=== PATIENT | female | born 1995 | race Caucasian/White ===

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

== ENCOUNTER → 2017-01-02 | Outpatient (CLI) | payer OTHER ==
--- NOTE | 2017-01-02 10:55 | REP ---
Clinical: Anatomical evaluation. Comparison: None . Findings: Examination demonstrates a single live intrauterine in breech presentation. motion is identified by technologist. Placenta is noted posterior-fundally and grade zero without evidence for placenta previa or abruption. Amniotic fluid volume is normal. Cervix measures 3.2 cm in length and appears closed. No evidence for nuchal cord. Gestational age by LMP 18 weeks 3 days with BAMBI 06/02/2017 . Gestational age by current measurements 18 weeks 2 days with BAMBI 06/03/2017 . FHR equals 144 beats per minute. BPD 4.0 cm 18 weeks 2 days HC 15.4 cm 18 weeks 2 days AC 13.3 cm 18 weeks 5 days FL 2.6 cm 18 weeks 0 days HL 2.6 cm 80 weeks 3 days HC/AC ratio 1.16 Estimated weight 238 grams ( 46 percentile). Anatomical assessment demonstrates normal structures including cranium, choroid plexus, cavum, cerebellum/posterior fossa, facial features, lungs, four-chamber heart/ventricular outflow tracts, diaphragm, stomach, cord insertion/three-vessel cord, kidneys/bladder, spine, and extremities. Impression: Fetus in breech presentation demonstrating appropriate interval growth. Anatomical assessment is complete and normal. Signed by Herbert Watkins MD 01/02/2017 10:46 A
== END ==
LOC: M RAD 09:44
PROVIDERS: ATTEND Specialist
DX: Z36 Encounter for antenatal screening of mother (principal)

== ENCOUNTER → 2017-02-15 | Outpatient (REF) | payer OTHER ==
[~2017-02-15] MED LIST: ACET50TA PO; MOTR200T44 PO; PRENTAB9 PO; TUMS500C PO
== END ==
LOC: M LAB REF 13:26
PROVIDERS: ATTEND Advanced Practice Midwife
DX: O26.893 Other specified pregnancy related conditions, third trimester (principal); R10.30 Lower abdominal pain, unspecified

== ENCOUNTER → 2017-02-28 | Outpatient (CLI) | payer OTHER ==
[2017-02-28 13:28] LABS: MEAN CORPUSCULAR HEMOGLOBIN 30.2 pg (27.0-33.0); MEAN CORPUSCULAR HGB CONC 33.1 g/dl (32.0-36.5); MEAN CORPUSCULAR VOLUME 91.4 fl (80.0-96.0); RED CELL DISTRIBUTION WIDTH 12.3 % (11.5-14.5); WHITE BLOOD COUNT 8.1 K/mm3 (4.0-10.0)
== END ==
LOC: M SMT 09:46
PROVIDERS: ATTEND Advanced Practice Midwife
DX: Z34.82 Encounter for supervision of other normal pregnancy, second trimester (principal); Z36 Encounter for antenatal screening of mother

== ENCOUNTER → 2017-03-27 | Outpatient (CLI) | payer OTHER ==
[2017-03-27 14:05] LABS: BASO % 0.3 % (0.0-1.0); EOS # 0.2 K/mm3 (0.0-0.50); LARGE UNSTAINED CELL # 0.4 K/mm3 (0.0-0.4); LARGE UNSTAINED CELL % 3.3 % (0.0-4.0); LYMPH # 1.9 K/mm3 (1.5-6.5); LYMPH % 17.6 % (24.0-44.0); MEAN CORPUSCULAR HEMOGLOBIN 28.8 pg (27.0-33.0); MEAN CORPUSCULAR HGB CONC 32.8 g/dl (32.0-36.5); MEAN CORPUSCULAR VOLUME 87.7 fl (80.0-96.0); MONO # 0.9 K/mm3 (0.0-0.8); MONO % 7.9 % (0.0-5.0); NEUTROPHILS # 7.6 K/mm3 (1.8-7.7); NEUTROPHILS % 68.8 % (36.0-66.0); PLATELET COUNT, AUTOMATED 405 k/mm3 (150-450); RED CELL DISTRIBUTION WIDTH 12.4 % (11.5-14.5)
[2017-03-27 16:32] LABS: ALBUMIN 2.8 GM/DL (3.2-5.2); ALKALINE PHOSPHATASE 120 U/L (45-117); ALT/SGPT 28 U/L (12-78); AMYLASE 58 U/L (25-115); AST/SGOT 17 U/L (15-37); BILIRUBIN,DIRECT < 0.1 MG/DL (0.0-0.2); BILIRUBIN,TOTAL 0.2 MG/DL (0.2-1.0); TOTAL PROTEIN 6.8 GM/DL (6.4-8.2)
== END ==
LOC: M SMT 11:23
PROVIDERS: ATTEND Advanced Practice Midwife
DX: R10.10 Upper abdominal pain, unspecified (principal); R10.30 Lower abdominal pain, unspecified

== ENCOUNTER → 2017-03-29 | Outpatient (CLI) | payer OTHER ==
--- NOTE | 2017-03-29 08:59 | REP ---
Abdominal right upper quadrant ultrasound: The the patient is 30+ weeks gestational age. There is a positive Cervantes's sign to transducer pressure. There is no cholelithiasis, gallbladder wall thickening or pericholecystic fluid. There is no intrahepatic or extrahepatic biliary duct dilatation, the common duct measures 3.2 mm in diameter. The hepatic parenchyma is homogeneous and unremarkable. The pancreas is obscured by bowel gas. There is mild right hydronephrosis. The right kidney is normal size measuring 10.7 cm craniocaudad length. Impression: Mild right hydronephrosis. Positive Cervantes's sign to transducer pressure. No cholelithiasis or biliary duct dilatation. Signed by Nilo Benz MD 03/29/2017 08:51 A
== END ==
LOC: M RAD 07:20
PROVIDERS: ATTEND Advanced Practice Midwife
DX: R10.10 Upper abdominal pain, unspecified (principal); N13.30 Unspecified hydronephrosis

== ENCOUNTER 2017-04-04 16:12 | Outpatient (CLI) | payer OTHER ==
[~2017-04-04] VITALS: Ht 157.5 cm; Wt 68.0 kg
[2017-04-04] MEDS ORDERED: TUMS500C PO (16:23)
[2017-04-04] MEDS ORDERED: PRENTAB9 PO (16:23)
[2017-04-04 16:24] VITALS: BP 121/76
[2017-04-04] MEDS ORDERED: NS 500 ML IV ONE (16:45)
[2017-04-04] MEDS ORDERED: PROMETHAZINE INJ 25 MG/ML VIAL (J2550) IV PRN (16:45)
[2017-04-04] MEDS ORDERED: NS 1,000 ML IV ONE (16:45)
[2017-04-04] MEDS ORDERED: MORPHINE 4 MG/ML 1ML SYRINGE IV PRN (16:45)
[2017-04-04] MEDS ORDERED: diphenhydrAMINE INJ 50MG/ML VIAL (J1200) IV PRN (16:45)
[2017-04-04] MEDS ORDERED: cefTRIAXone SOD 2 GM in D5W MINI-BAG PLUS 50 ML IV SCH (17:00)
[2017-04-04] MEDS: ACETAMINOPHEN 500 MG TAB PO PRN (17:29)
--- NOTE | 2017-04-04 17:43 | HPE ---
DATE OF ADMISSION: 04/04/2017 CHIEF COMPLAINT: Fever and back pain. HISTORY OF PRESENT ILLNESS: Patient is a 21-year-old 1, para 0-0-0-0, at 31 weeks 4 days gestation, with an estimated due date of 06/02/2017, by last menstrual period of 08/26/2016, confirmed by first trimester ultrasound. She presents complaining of low back pain that starts around the lumbosacral junction and radiates down to her kneecaps bilaterally as well as up to her stomach. She states that the pain started in January. She describes it as being constant and states that her pain has been getting progressively worse. She states that this morning at 2 a.m. the pain in her back became worse than it ever has been before. She rates it as a constant 7-8 out of 10 and describes it as a dull ache with spikes. Nothing seems to make it better, nothing seems to make it worse. She has had back pain in the past, but it has never been this bad. The patient denies contractions, leakage of fluid, bleeding, and discharge. She is feeling the baby move. The patient admits to urinary urgency, seeing frothy urine, having diarrhea times 2 days, nausea, and vomiting. She denies burning with urination, hematuria, shortness of breath, chest pain, or changes in her vision. labs from the office are all within normal limits. PAST MEDICAL HISTORY: 1. Multiple urinary tract infection (UTIs). 2. Depression. PAST SURGICAL HISTORY: [place] teeth removal at the age of 16. FAMILY HISTORY: Significant for mother with Crohn's disease. ALLERGIES: PENICILLIN - reaction hives and shortness of breath. SOCIAL HISTORY: Patient is , denies tobacco, drugs, or alcohol use. EXAMINATION: VITAL SIGNS: Temperature is 101.9, pulse is 127, respiratory rate is 28, blood pressure is 121/76. ABDOMEN: Gravid. BACK: Back pain is felt along the lumbosacral junction, nonreproducible to palpation, TART changes are noted as the muscles feel tight and ropey. There is also a slight loss of lumbar lordosis noted. FHR: Average is 165 bpm, appropriate for gestational age TOCO: No consistent contractions. ASSESSMENT AND PLAN: 21-year-old 1, para 0, at 31 weeks 4 days gestation complaining of fever and back pain. Possible diagnosis is pyelonephritis, which is supported by back pain and fever, as well as personal history of recurrent UTIs. Our plan is to observe outpatient labor and delivery. Labs will include a complete blood count (CBC), complete metabolic panel (CMP), urinalysis. Renal ultrasound has been ordered. Will continue to monitor. My preceptor for this patient encounter was Arina Stiles CNM. The preceptor was physically present in the building during the encounter and was fully available. As needed, all aspects of the patient interview, examination, medical decision making process, and medical care plan development were reviewed and approved by the preceptor. The preceptor is aware and concurs with the plan as stated in the body of this note and will attest to such by his/her cosignature. OLEG
--- NOTE | 2017-04-04 18:29 | REP ---
Renal ultrasound: The images and stored on the PACS archive are suboptimal. Therefore, I have discussed in the case with the business services tech that actually performed of the ultrasound. The kidneys are normal size. Right kidney measures 10.9 x 5.2 x 4.8 cm. Left kidney measures 10.6 x 5.8 x 4.3 cm. Renal cortical echogenicity is normal bilaterally. There is no hydronephrosis, calculus, mass or cyst on the right or the left. There is mild fullness of the right renal pelvis without hydronephrosis. The Doppler resistive index of intraparenchymal arteries of the right kidney is 0.49 and the left kidney 0.53. Impression: Essentially negative renal ultrasound. No hydronephrosis. Bladder ultrasound: The bladder is not distended and cannot be further evaluated at this time. Signed by Nilo Benz MD 04/04/2017 06:21 P
[2017-04-04 18:39] LABS: BASO % 0.3 % (0.0-1.0); EOS % 0.4 % (0.0-3.0); LARGE UNSTAINED CELL # 0.1 K/mm3 (0.0-0.4); LYMPH # 0.8 K/mm3 (1.5-6.5); LYMPH % 6.4 % (24.0-44.0); MEAN CORPUSCULAR HEMOGLOBIN 28.4 pg (27.0-33.0); MEAN CORPUSCULAR HGB CONC 33.5 g/dl (32.0-36.5); MEAN CORPUSCULAR VOLUME 84.8 fl (80.0-96.0); MONO # 0.8 K/mm3 (0.0-0.8); NEUTROPHILS % 84.8 % (36.0-66.0); PLATELET COUNT, AUTOMATED 267 k/mm3 (150-450); RED CELL DISTRIBUTION WIDTH 13.3 % (11.5-14.5); WHITE BLOOD COUNT 10.6 K/mm3 (4.0-10.0)
[2017-04-04 19:03] LABS: ALBUMIN 2.7 GM/DL (3.2-5.2); ALBUMIN/GLOBULIN RATIO 0.68 (1.00-1.93); ALKALINE PHOSPHATASE 126 U/L (45-117); ALT/SGPT 15 U/L (12-78); ANION GAP 13 MEQ/L (8-16); AST/SGOT 13 U/L (15-37); BILIRUBIN,TOTAL 0.2 MG/DL (0.2-1.0); BLOOD UREA NITROGEN 3 MG/DL (7-18); CARBON DIOXIDE LEVEL 20 MEQ/L (21-32); CHLORIDE LEVEL 105 MEQ/L (98-107); GLUCOSE, FASTING 78 MG/DL (70-105); POTASSIUM SERUM 3.4 MEQ/L (3.5-5.1); SODIUM LEVEL 138 MEQ/L (136-145); TOTAL PROTEIN 6.7 GM/DL (6.4-8.2)
[2017-04-04 19:37] LABS: INR 1.01
[2017-04-04 20:36] VITALS: BP 120/72
--- NOTE | 2017-04-04 21:50 | REPUSA ---
CLINICAL HISTORY: Abdominal pain. TECHNIQUE: Realtime sonographic images were obtained in multiple projections. COMMENTS: There is a single intrauterine gestation, vertex presentation. The biparietal diameter measures 8.4 cm. This corresponds to a gestational age of 33 weeks 4 days. The abdominal circumference and femur length measure 27.9 cm and 6 cm, respectively, and are relative ly proportionate to the BPD. The HC-AC ratio is normal. The composite age is 32 weeks 0 days. Estimated weight based on BPD and AC is 1894 grams (5 pounces and 2 ounces). heart motion was observed. The heart rate is 137 beats per minute. The placenta is posterior fundal grade-1 and free of the cervical os. The amniotic fluid volume is normal measuring 13.6 cm. The cervical length is 3.9 cm. Biophysical profile score is 8 out of 8. IMPRESSION: 1. Single, live, intrauterine gestation with a composite gestational age of 32 weeks 0 days. 2. Estimated date of delivery is 05/30/2017. 3. BPP is 03/26.
[2017-04-04 22:57] VITALS: BP 103/58
[2017-04-05] MEDS: ACETAMINOPHEN 500 MG TAB PO PRN (04:56)
[2017-04-05 07:10] VITALS: BP 91/52
== END 2017-04-05 12:50 | disposition home or self-care (01) ==
LOC: M LDO 16:12
PROVIDERS: ATTEND Advanced Practice Midwife
DX: O99.89 Other specified diseases and conditions complicating pregnancy, childbirth and the puerperium (principal); M54.5 Low back pain; R50.9 Fever, unspecified; Z87.440 Personal history of urinary (tract) infections; Z3A.31 31 weeks gestation of pregnancy
CPT/HCPCS: 36415; 59025; 76775; 76816; 76819; 76820; 80053; 81001; 82731; 85025; 85384; 85460; 85610; 85730; 87086; 87491; 87591; 96374; J0696

== ENCOUNTER → 2017-04-04 | Outpatient (REF) | payer OTHER | LOC: M LAB REF 17:29 | PROVIDERS: ATTEND Advanced Practice Midwife | DX: Z34.82 Encounter for supervision of other normal pregnancy, second trimester (principal); Z36 Encounter for antenatal screening of mother ==

== ENCOUNTER → 2017-04-04 | Outpatient (REF) | payer OTHER | LOC: M LAB REF 16:49 | PROVIDERS: ATTEND Advanced Practice Midwife | DX: R10.2 Pelvic and perineal pain (principal) ==

== ENCOUNTER 2017-04-26 22:37 | Inpatient (IN) | payer OTHER ==
[~2017-04-26] VITALS: Ht 157.5 cm; Wt 72.0 kg
[~2017-04-26 22:37] MED LIST changes: -ACET50TA PO; -MOTR200T44 PO
[2017-04-26] MEDS ORDERED: LR 1,000 ML IV SCH (23:10)
[2017-04-26] MEDS ORDERED: LACTATED RINGER'S 1000 ML IV STA (23:10)
[2017-04-26] MEDS ORDERED: BETAMETHASONE SOLUSPAN 6MG/ML INJ 5ML (J0702) IM SCH (23:15)
[2017-04-26] MEDS ORDERED: ACETAMINOPHEN TAB 650MG DOSE (2X325MG) PO PRN (23:15)
[2017-04-26 23:34] LABS: MEAN CORPUSCULAR HEMOGLOBIN 27.3 pg (27.0-33.0); MEAN CORPUSCULAR HGB CONC 32.3 g/dl (32.0-36.5); MEAN CORPUSCULAR VOLUME 84.6 fl (80.0-96.0); RED CELL DISTRIBUTION WIDTH 13.9 % (11.5-14.5); WHITE BLOOD COUNT 16.1 K/mm3 (4.0-10.0)
[2017-04-26] MEDS ORDERED: BUTORPHANOL 2 MG/ML INJ (J0595) IV ONE (23:45)
[2017-04-26] MEDS ORDERED: PROMETHAZINE INJ 25 MG/ML VIAL (J2550) IV ONE (23:45)
[2017-04-26 23:47] VITALS: BP 135/79
[2017-04-27] VITALS (13 sets, daily range): BP systolic 106–188; BP diastolic 56–113
[2017-04-27] MEDS ORDERED: OXYTOCIN 30 UNITS IN 0.9% NaCl 500ML IV BAG (J2590) As Ordered ONE (01:28)
[2017-04-27 01:58] LABS: CORD GAS ABE A -5.4; CORD GAS HCO3 A 21.6 MEQ/L; CORD GAS O2 SAT A 56.5 %; CORD GAS PCO2 A 47.1 mmHg; CORD GAS PH A 7.279 UNITS; CORD GAS SBC A 19.1 MEQ/L
[2017-04-27 02:00] LABS: CORD GAS PO2 A 25.9 mmHg
[2017-04-27] MEDS ORDERED: OXYTOCIN DRIP 30 UNITS in APPROPRIATE DILUENT 1 EA IV SCH (02:01)
[2017-04-27 02:02] LABS: CORD GAS ABE V -5.8; CORD GAS HCO3 V 20.6 MEQ/L; CORD GAS O2 SAT V 65.1 %; CORD GAS PCO2 V 43.5 mmHg; CORD GAS PH V 7.294 UNITS
[2017-04-27] MEDS ORDERED: RHOGAM 300 MCG (1500 IU) INJ (J2790) IM SCH (02:15)
[2017-04-27] MEDS ORDERED: LIDOCAINE 1% MDV INJ 50 ML VIAL INFIL ONE (02:15)
[2017-04-27] MEDS ORDERED: MOM 30ML SUSPENSION UDC PO PRN (02:15)
[2017-04-27] MEDS ORDERED: MEASLES,MUMPS,RUBELLA VACCINE INJ (MMR-II) (90707) SC SCH (02:15)
[2017-04-27] MEDS ORDERED: METHYLERGONOVINE MALEATE 0.2 MG TAB PO PRN (02:15)
[2017-04-27] MEDS ORDERED: DOCUSATE SODIUM 100 MG CAP PO PRN (02:15)
[2017-04-27] MEDS ORDERED: ANUSOL HC CREAM 30GM TOP PRN (02:15)
[2017-04-27] MEDS ORDERED: DIBUCAINE 1% OINTMENT 30GM TOP PRN (02:15)
--- NOTE | 2017-04-27 02:52 | HPE ---
DATE OF ADMISSION: 04/26/2017 21-year-old 1, estimated date of delivery 06/02/2017, presents at 34 weeks 5 days with reports of menstrual cramps through the day, stronger tonight. Denies loss of fluid or bleeding. Fetus is active. Last normal menstrual period 08/26/2016 for estimated date of delivery 06/02/2017. Sonogram at 8 weeks confirmed her date. Anatomy scan within normal limits. has been complicated by sporadic upper abdominal pain of undetermined etiology. Liver, gallbladder and renal scans within normal limits. ALLERGIES: She is allergic to PENICILLIN, causes hives and shortness of breath. She has received ceftriaxone without reaction. MEDICAL-SURGICAL HISTORY: Depression and asthma. FAMILY HISTORY: Diabetes, Crohn's and autism. SOCIAL HISTORY: . Father of the baby present and supportive. Denies tobacco, alcohol, drugs or abuse. OBJECTIVE: Prepregnancy weight 125, total weight gain 35 pounds. A positive, antibody negative, rubella immune, VDRL, hepatitis B, hepatitis C, HIV, gonorrhea, Chlamydia all negative. Quad screen within normal limits. 1- hour glucose 86, mild anemia in the third trimester treated with [id number] iron supplement. Last hemoglobin and hematocrit 9.1 and 27.3. Group B Streptococcus is unknown. Negative fibronectin on 04/04. Vital signs are stable. Breathing hard with contractions. Heart rate is regular. Abdomen is soft, gravid, longitudinal lie, presentation confirmed by bedside sonogram cephalic. Uterine contractions difficult to trace due to maternal activity and discomfort. heart 155, moderate variability with accelerations. Sterile vaginal exam 4 cm, 90%, -1 on initial assessment. 7 cm, 100 and -1 with bulging membranes within 30 minutes. ASSESSMENT: Primipara at 34 weeks 5 days, active labor, reassuring status. PLAN: Admit. Dr. Bower is notified of the patient's status. intensive care unit (NICU) is aware. Steroids and antibiotics ordered. Group B Streptococcus obtained. Anticipate normal spontaneous vaginal . [facility]
[2017-04-27] MEDS: IBUPROFEN 800 MG TAB PO PRN ×3 (03:08→19:56)
[2017-04-27] MEDS ORDERED: BUTORPHANOL 2 MG/ML INJ (J0595) IV ONE (03:15)
--- NOTE | 2017-04-27 04:25 | DN ---
DATE OF SERVICE: 04/27/2017 Spontaneous active labor progressed quickly. Treated with Ancef for unknown group B Streptococcus. Utilized Stadol for labor coping, urge to push at 7-8 cm. The patient was coached to breathe heavily through the contractions and frequent position changes. Artificial rupture of membranes, moderate amount clear odorless fluid 0121. Fully dilated at 0130. The intensive care unit (NICU) was alerted. Strong bearing down efforts until delivery of viable male right occiput anterior (KEO) at 0137. Bloody fluid was noted with delivery of the head. Suctioned at the perineum, spontaneous respirations with stimulation. brought to Marisol's chest for tactile stimulation where cord was doubly clamped and cut by father of the baby. Dr. Vieyra was in the room shortly after delivery and the infant was brought to the warmer for assessment by Dr. Vieyra. scores 8 and 9. Cord gases were obtained. Results are pending. Placenta delivered Leija intact with three-vessel cord at 0143. Fundus firmed with massage and intravenous (IV) Pitocin bolus. Estimated blood loss 100 mL. Perineum, cervix and vagina inspected. A small 2 cm hematoma noted at the base of the left hymenal remnant and a small left posterior vaginal tear. Lidocaine infiltration with two stitches to repair the laceration using 3-0 Vicryl Rapide. Sponge, sharp and instrument count correct. The placenta was sent to pathology. Infant weight 2450 grams, 5 pounds 6 ounces. Parents are naming their baby Anibal and the was attended by Hali Bailey, student nurse world travel counselor and myself.
[2017-04-27] MEDS ORDERED: ceFAZolin SOD 1 GM in D5W MINI-BAG PLUS 50 ML IV SCH (07:15)
[2017-04-27] MEDS: PRENATAL VITAMINS CHEWABLE TABLET PO SCH (08:28)
[2017-04-27] MEDS: FERROUS SULFATE 325MG TAB PO SCH (08:28)
[2017-04-27] MEDS ORDERED: INFLUENZA QUADRIVALENT PF VACCINE 0.5ML SYRINGE (90686) IM ONE (09:00)
[2017-04-28 06:45] VITALS: BP 121/78
[2017-04-28] MEDS: FERROUS SULFATE 325MG TAB PO SCH (08:29)
[2017-04-28] MEDS: PRENATAL VITAMINS CHEWABLE TABLET PO SCH (08:29)
[2017-04-28] MEDS: IBUPROFEN 800 MG TAB PO PRN ×2 (08:30→17:05)
[2017-04-28 18:00] VITALS: BP 125/79
[2017-04-28 22:00] VITALS: BP 110/68
[2017-04-29] MEDS: IBUPROFEN 800 MG TAB PO PRN (05:48)
[2017-04-29 06:09] VITALS: BP 129/75
[2017-04-29] MEDS: PRENATAL VITAMINS CHEWABLE TABLET PO SCH (10:01)
[2017-04-29] MEDS: FERROUS SULFATE 325MG TAB PO SCH (10:01)
[2017-04-29] MEDS ORDERED: ACET50TA PO (10:28)
[2017-04-29] MEDS ORDERED: MOTR200T44 PO (10:28)
== END 2017-04-29 11:45 | disposition home or self-care (01) | DRG 775 ==
LOC: M LDO 22:37 → M LDI 23:00 → M OBS 04-27 03:27
PROVIDERS: ADMIT Advanced Practice Midwife; ATTEND Advanced Practice Midwife
PROC: 10E0XZZ Delivery of Products of Conception, External Approach (ICD-10-PCS; principal; 2017-04-27)
PROC: 0KQM0ZZ Repair Perineum Muscle, Open Approach (ICD-10-PCS; 2017-04-27)
DX: O60.14X0 Preterm labor third trimester with preterm delivery third trimester, not applicable or unspecified (principal); Z37.0 Single live birth; Z3A.34 34 weeks gestation of pregnancy; Z88.0 Allergy status to penicillin; O70.0 First degree perineal laceration during delivery